=== PATIENT | female | born 1955 | race Hispanic/Latino ===

== ENCOUNTER 2018-11-25 05:39 | Emergency (ER) | payer SELFPAY ==
[2018-11-25 06:30] LABS: BILIRUBIN,URINE Negative (NEGATIVE); COLOR,URINE Yellow (YELLOW); GLUCOSE, URINE (UA) Negative (NEGATIVE); KETONES,URINE Negative (NEGATIVE); LEUKOCYTE ESTERASE ,URINE Small (NEGATIVE); NITRATE,URINE Negative (NEGATIVE); OCCULT BLOOD,URINE Negative (NEGATIVE); PROTEIN,URINE Negative (NEGATIVE); UROBILINOGEN,URINE 0.2 mg/dL (0.2-1.0)
[2018-11-25] MEDS ORDERED: ORPHENADRINE CITRATE 30 MG/ML ML ONE (06:32)
[2018-11-25] MEDS ORDERED: SODIUM CHLORIDE 0.9% 1000ML 2,000 ML IV ONE (06:32)
[2018-11-25] MEDS ORDERED: KETOROLAC TROMETHAMINE 30MG/ML ONE (06:32)
[2018-11-25 06:46] LABS: BASOPHILS % (AUTO) 0.7 % (0.0-5.0); HEMATOCRIT 46.3 % (36-48); LYMPHOCYTES % (AUTO) 35.7 % (21.0-51.0); MEAN CORPUSCULAR HEMOGLOBIN 31.2 pg (27.0-33.0); MEAN CORPUSCULAR HGB CONC 34.8 g/dL (32.0-36.0); MEAN CORPUSCULAR VOLUME 89.6 fL (79-99); MONOCYTES % (AUTO) 7.7 % (3.0-13.0); NEUTROPHILS % (AUTO) 54.9 % (40.0-77.0); NUCLEATED RED BLOOD CELLS 0.1 % (0.0-0.19); PLATELET COUNT (AUTO) 248 K/uL (130-400); RED BLOOD CELL COUNT(AUTO) 5.16 MIL/uL (4.00-5.50); RED CELL DISTRIBUTION WIDTH 14.4 % (11.0-15.5); WHITE BLOOD COUNT (AUTO) 6.5 K/uL (4.8-10.8)
[2018-11-25 06:56] LABS: CREATININE 0.7 mg/dL (0.5-1.5); POTASSIUM 3.7 mmol/L (3.5-5.1)
[2018-11-25 07:39] LABS: APPEARANCE,URINE CLEAR (CLEAR); BACTERIA,URINE Rare /HPF (None Seen); RBC,URINE None Seen /HPF (0-1)
[2018-11-25 07:40] LABS: SQUAMOUS EPITHELIAL CELL,UR 0-2 /HPF (0-2); WBC,URINE 0-1 /HPF (0-1)
== END 2018-11-25 08:02 | disposition home or self-care (01) ==
LOC: EDH 05:39
DX: M62.838 Other muscle spasm (principal); R51 Headache; I10 Essential (primary) hypertension
CPT/HCPCS: 36415; 80048; 81001; 85025; 96374; 96375; 99284; J1885; J2360; J7030

== ENCOUNTER 2019-04-04 19:19 | Emergency (ER) | payer OTHER ==
[2019-04-04 20:06] LABS: APPEARANCE,URINE Cloudy (CLEAR); BILIRUBIN,URINE Negative (NEGATIVE); COLOR,URINE Yellow (YELLOW); GLUCOSE, URINE (UA) Negative (NEGATIVE); KETONES,URINE Negative (NEGATIVE); LEUKOCYTE ESTERASE ,URINE Moderate (NEGATIVE); NITRATE,URINE Negative (NEGATIVE); OCCULT BLOOD,URINE Nonhemolyzed Trace (NEGATIVE); PROTEIN,URINE Negative (NEGATIVE); UROBILINOGEN,URINE 0.2 mg/dL (0.2-1.0)
[2019-04-04 20:16] LABS: BASOPHILS % (AUTO) 0.3 % (0.0-5.0); EOSINOPHILS % (AUTO) 1.4 % (0.0-8.0); HEMATOCRIT 43.1 % (36-48); LYMPHOCYTES % (AUTO) 47.9 % (21.0-51.0); MEAN CORPUSCULAR VOLUME 86.2 fL (79-99); MONOCYTES % (AUTO) 7.6 % (3.0-13.0); NEUTROPHILS % (AUTO) 42.5 % (40.0-77.0); PLATELET COUNT (AUTO) 275 K/uL (130-400); RED CELL DISTRIBUTION WIDTH 13.2 % (11.0-15.5); WHITE BLOOD COUNT (AUTO) 7.7 K/uL (4.8-10.8)
[2019-04-04 20:17] LABS: BACTERIA,URINE Rare /HPF (None Seen); RBC,URINE 0-1 /HPF (0-1)
[2019-04-04 20:18] LABS: AMORPHOUS SEDIMENT,UR Moderate /LPF (None Seen); MUCUS,URINE Few LPF (None Seen); SQUAMOUS EPITHELIAL CELL,UR Few /HPF (0-2)
[2019-04-04 20:20] LABS: URIC ACID CRYSTALS,URINE Rare /LPF (None Seen)
[2019-04-04] MEDS ORDERED: SODIUM CHLORIDE 0.9% 1000ML 1,000 ML IV ONE (20:28)
[2019-04-04] MEDS ORDERED: KETOROLAC TROMETHAMINE 30MG/ML ONE (20:28)
[2019-04-04 20:34] LABS: CREATININE 0.7 mg/dL (0.5-1.5); POTASSIUM 3.8 mmol/L (3.5-5.1)
[2019-04-04 20:38] LABS: ALBUMIN 3.3 g/dL (3.5-5.0); BILIRUBIN,TOTAL 0.4 mg/dL (0.2-1.0); TOTAL PROTEIN, SERUM 7.8 g/dL (6.0-8.3)
[2019-04-04] MEDS ORDERED: IOHEXOL-350 75 ML VIAL IV ONE (20:41)
== END 2019-04-04 21:52 | disposition home or self-care (01) ==
LOC: EDH 19:19
DX: N30.00 Acute cystitis without hematuria (principal); I10 Essential (primary) hypertension; M19.90 Unspecified osteoarthritis, unspecified site
CPT/HCPCS: 36415; 74177; 80053; 81001; 82948; 85025; 87040 ×2; 96374; 99285; J1885; J7030; Q9967

== ENCOUNTER 2020-10-08 20:23 | Emergency (ER) | payer OTHER ==
[~2020-10-08] VITALS: Ht 160 cm; Wt 54.4 kg
[2020-10-08 20:26] VITALS: BP 142/79
[2020-10-08 20:40] VITALS: BP 133/90
[2020-10-08] MEDS ORDERED: ALBUHFA IH (21:37)
[2020-10-08] MEDS ORDERED: FLUT1DIS IH (21:37)
== END 2020-10-08 22:11 | disposition home or self-care (01) ==
LOC: EDH 20:23
DX: U07.1 COVID-19 (principal); B34.9 Viral infection, unspecified; E66.9 Obesity, unspecified; I10 Essential (primary) hypertension; Z79.51 Long term (current) use of inhaled steroids; Z79.899 Other long term (current) drug therapy
CPT/HCPCS: 71045

== ENCOUNTER 2020-12-21 13:32 | Emergency (ER) | payer OTHER, SELFPAY ==
[~2020-12-21] VITALS: Ht 160 cm; Wt 99.8 kg
[~2020-12-21 13:32] MED LIST: ALBUHFA IH; FLUT1DIS IH
[2020-12-21 14:18] LABS: BASOPHILS % (AUTO) 0.4 % (0.0-5.0); EOSINOPHILS % (AUTO) 1.1 % (0.0-8.0); HEMATOCRIT 43.6 % (36-48); LYMPHOCYTES % (AUTO) 27.4 % (21.0-51.0); MEAN CORPUSCULAR HEMOGLOBIN 30.1 pg (27.0-33.0); MEAN CORPUSCULAR HGB CONC 34.6 g/dL (32.0-36.0); MEAN CORPUSCULAR VOLUME 86.9 fL (79-99); MONOCYTES % (AUTO) 7.3 % (3.0-13.0); NEUTROPHILS % (AUTO) 63.4 % (40.0-77.0); PLATELET COUNT (AUTO) 281 K/uL (130-400); RED BLOOD CELL COUNT(AUTO) 5.02 MIL/uL (4.00-5.50); RED CELL DISTRIBUTION WIDTH 13.1 % (11.0-15.5)
[2020-12-21 14:28] LABS: CREATININE 0.8 mg/dL (0.5-1.5); POTASSIUM 4.2 mmol/L (3.5-5.1)
[2020-12-21 14:32] LABS: ALBUMIN 3.8 g/dL (3.5-5.0); BILIRUBIN,TOTAL 1.2 mg/dL (0.2-1.0)
[2020-12-21 14:37] LABS: APPEARANCE,URINE Cloudy (CLEAR); BILIRUBIN,URINE Negative (NEGATIVE); COLOR,URINE Yellow (YELLOW); GLUCOSE, URINE (UA) Negative (NEGATIVE); KETONES,URINE Negative (NEGATIVE); LEUKOCYTE ESTERASE ,URINE Moderate (NEGATIVE); NITRATE,URINE Negative (NEGATIVE); OCCULT BLOOD,URINE Small (NEGATIVE); PH,URINE 5.5 (5.0-8.0); PROTEIN,URINE Trace mg/dL (NEGATIVE); UROBILINOGEN,URINE 0.2 mg/dL (0.2-1.0)
[2020-12-21 14:51] LABS: BACTERIA,URINE Few /HPF (None Seen); MUCUS,URINE Few LPF (None Seen); RBC,URINE 0-1 /HPF (0-1); SQUAMOUS EPITHELIAL CELL,UR Few /HPF (0-2)
[2020-12-21] MEDS ORDERED: CEFTRIAXONE 1G VIAL ONE (17:16)
[2020-12-21] MEDS ORDERED: KETOROLAC 30MG VIAL (30MG/ML) ONE (17:16)
[2020-12-21] MEDS ORDERED: 0.9%NACL 1000ML 1,000 ML IV ONE ×2 (17:17→17:30)
[2020-12-21] MEDS ORDERED: 0.9%NACL 50ML 50 ML IV ONE (17:17)
[2020-12-21] MEDS ORDERED: KETOROLAC 30MG VIAL (30MG/ML) IV ONE (17:30)
[2020-12-21] MEDS ORDERED: CEFTRIAXONE 1G VIAL IVP ONE (17:30)
[2020-12-21 18:54] VITALS: BP 116/65
[2020-12-21] MEDS ORDERED: ONDA4TAB10 PO (19:21)
[2020-12-21] MEDS ORDERED: CETI10TA57 PO (19:21)
[2020-12-21] MEDS ORDERED: IBUP-2070 PO (19:21)
[2020-12-21] MEDS ORDERED: CIPR-278 PO (19:21)
== END 2020-12-21 19:50 | disposition home or self-care (01) ==
LOC: EDH 13:32
DX: N12 Tubulo-interstitial nephritis, not specified as acute or chronic (principal); R55 Syncope and collapse; R09.81 Nasal congestion; E66.9 Obesity, unspecified; I10 Essential (primary) hypertension; Z68.39 Body mass index [BMI] 39.0-39.9, adult; Z79.1 Long term (current) use of non-steroidal anti-inflammatories (NSAID); Z79.51 Long term (current) use of inhaled steroids; Z79.899 Other long term (current) drug therapy
CPT/HCPCS: 36415; 74176; 80053; 81001; 82150; 82550; 83605; 83690; 84484; 85025; 87040 ×2; 87088; 93005; 96361; 96374; 96375; 99285; J0696; J1885; J7030

== ENCOUNTER 2022-08-01 13:18 | Emergency (ER) | payer OTHER ==
[~2022-08-01] VITALS: Ht 157.5 cm; Wt 95.3 kg
[~2022-08-01 13:18] MED LIST changes: +CETI10TA57 PO; +CIPR-278 PO; +IBUP-2070 PO; +ONDA4TAB10 PO
[2022-08-01 13:42] LABS: BASOPHILS % (AUTO) 0.5 % (0.0-5.0); EOSINOPHILS % (AUTO) 1.7 % (0.0-8.0); HEMATOCRIT 44.3 % (36-48); LYMPHOCYTES % (AUTO) 42.6 % (21.0-51.0); MEAN CORPUSCULAR HEMOGLOBIN 29.6 pg (27.0-33.0); MEAN CORPUSCULAR HGB CONC 34.5 g/dL (32.0-36.0); MEAN CORPUSCULAR VOLUME 85.7 fL (79-99); MONOCYTES % (AUTO) 6.7 % (3.0-13.0); NEUTROPHILS % (AUTO) 48.2 % (40.0-77.0); PLATELET COUNT (AUTO) 272 K/uL (130-400); RED BLOOD CELL COUNT(AUTO) 5.17 MIL/uL (4.00-5.50); RED CELL DISTRIBUTION WIDTH 13.7 % (11.0-15.5); WHITE BLOOD COUNT (AUTO) 7.6 K/uL (4.8-10.8)
[2022-08-01 13:53] LABS: CREATININE 0.8 mg/dL (0.5-1.5)
[2022-08-01 13:57] LABS: ALBUMIN 3.8 g/dL (3.5-5.0); INR 0.97 (0.85-1.15); PROTHROMBIN TIME 10.6 SEC (9.6-11.6); TOTAL PROTEIN, SERUM 7.8 g/dL (6.0-8.3)
[2022-08-01 13:59] LABS: PARTIAL THROMBOPLASTIN TIME 26.7 SEC (26.3-35.5)
[2022-08-01 16:02] VITALS: BP 145/87
== END 2022-08-01 16:16 | disposition home or self-care (01) ==
LOC: EDH 13:18
DX: R04.0 Epistaxis (principal); Z91.148 Patient's other noncompliance with medication regimen for other reason; I10 Essential (primary) hypertension; E78.00 Pure hypercholesterolemia, unspecified; K29.70 Gastritis, unspecified, without bleeding; Z79.899 Other long term (current) drug therapy
CPT/HCPCS: 36415; 80053; 85025; 85610; 85730

== ENCOUNTER 2023-08-28 15:54 | Emergency (ER) | payer BC, OTHER ==
[~2023-08-28] VITALS: Ht 170.2 cm; Wt 105.2 kg
[~2023-08-28 15:54] MED LIST changes: +ONDA-243 PO; -ONDA4TAB10 PO
[2023-08-28 16:14] LABS: ADD UA MICROSCOPIC YES; APPEARANCE,URINE CLEAR (CLEAR); BILIRUBIN,URINE NEGATIVE (NEGATIVE); COLOR,URINE LIGHT-YELLOW (YELLOW); GLUCOSE, URINE (UA) NEGATIVE (NEGATIVE); KETONES,URINE NEGATIVE (NEGATIVE); LEUKOCYTE ESTERASE ,URINE 250 Leu/uL (NEGATIVE); NITRATE,URINE NEGATIVE (NEGATIVE); PROTEIN,URINE NEGATIVE (NEGATIVE); UROBILINOGEN,URINE 0.2 mg/dL (0.2-1.0)
[2023-08-28 16:16] LABS: MUCUS,URINE RARE LPF (None Seen); RBC,URINE 0-1 /HPF (0-1); SQUAMOUS EPITHELIAL CELL,UR RARE /HPF (0-2); WBC CLUMP RARE /HPF (0-1)
[2023-08-28 16:17] LABS: BASOPHILS # (AUTO) 0.06 K/uL (0.00-0.20); BASOPHILS % (AUTO) 0.8 % (0.0-5.0); EOSINOPHILS # (AUTO) 0.18 K/uL (0.00-0.70); EOSINOPHILS % (AUTO) 2.3 % (0.0-8.0); HEMATOCRIT 45.6 % (36-48); IMMATURE GRANULOCYTE ABSOLUTE 0.02 K/uL (0-1); LYMPHOCYTES # (AUTO) 3.8 K/uL (1.0-4.8); LYMPHOCYTES % (AUTO) 47.8 % (21.0-51.0); MEAN CORPUSCULAR HEMOGLOBIN 31.2 pg (27.0-33.0); MEAN CORPUSCULAR HGB CONC 35.5 g/dL (32.0-36.0); MEAN CORPUSCULAR VOLUME 87.7 fL (79-99); MONOCYTES # (AUTO) 0.5 K/uL (0.1-1.0); MONOCYTES % (AUTO) 6.3 % (3.0-13.0); NEUTROPHILS # (AUTO) 3.3 K/uL (1.8-7.7); NEUTROPHILS % (AUTO) 42.5 % (40.0-77.0); PLATELET COUNT (AUTO) 261 K/uL (130-400); RED CELL DISTRIBUTION WIDTH 13.2 % (11.0-15.5); WHITE BLOOD COUNT (AUTO) 7.8 K/uL (4.8-10.8)
[2023-08-28 16:35] LABS: CREATININE 0.8 mg/dL (0.5-1.0); POTASSIUM 4.2 mmol/L (3.5-5.1)
[2023-08-28 16:42] LABS: ALBUMIN 3.8 g/dL (3.5-5.0); BILIRUBIN,DIRECT 0.1 mg/dL (0.0-0.3); BILIRUBIN,TOTAL 0.9 mg/dL (0.2-1.0); TOTAL PROTEIN, SERUM 7.5 g/dL (6.0-8.3)
[2023-08-28] MEDS: 0.9% NACL 500ML IV.SOLN 500 ML IV ONE (16:46)
[2023-08-28] MEDS: DIAZEPAM 5 MG/ML 2 ML SYG IVP ONE (16:46)
[2023-08-28 17:12] VITALS: BP 153/86; PULSE 74; RESP 19; O2SAT 96
[2023-08-28] MEDS: CEFTRIAXONE 1G VIAL IVPB ONE (17:59)
[2023-08-28] MEDS ORDERED: CIPR-278 PO (18:00)
== END 2023-08-28 18:20 | disposition home or self-care (01) ==
LOC: EDH 15:54
DX: N12 Tubulo-interstitial nephritis, not specified as acute or chronic (principal); I10 Essential (primary) hypertension; E78.00 Pure hypercholesterolemia, unspecified; K21.9 Gastro-esophageal reflux disease without esophagitis; Z90.49 Acquired absence of other specified parts of digestive tract; Z79.899 Other long term (current) drug therapy; Z98.890 Other specified postprocedural states
CPT/HCPCS: 99284; 74176; 96374; 96375; 80076; 84484; 80048; 83690; 85025; 87086; 81001; 36415; 93005; J7040; J3360; J0696

== ENCOUNTER 2023-09-15 16:18 | Emergency (ER) | payer BC ==
[~2023-09-15] VITALS: Ht 162.6 cm; Wt 104.3 kg
[2023-09-15] MEDS ORDERED: BISACODYL 10 MG SUPP.RECT RC ONE (17:00)
[2023-09-15] MEDS ORDERED: GOLY4L PO (17:45)
[2023-09-15 18:12] VITALS: BP 130/81; PULSE 76; RESP 18; O2SAT 99
[2023-09-15] MEDS: LACTULOSE 20 GM/30 ML UDCUP PO ONE (18:15)
== END 2023-09-15 18:40 | disposition home or self-care (01) ==
LOC: EDH 16:18
DX: K59.09 Other constipation (principal); R14.1 Gas pain; E78.00 Pure hypercholesterolemia, unspecified; I10 Essential (primary) hypertension; K21.9 Gastro-esophageal reflux disease without esophagitis; Z79.51 Long term (current) use of inhaled steroids; Z79.899 Other long term (current) drug therapy; Z90.49 Acquired absence of other specified parts of digestive tract; Z98.890 Other specified postprocedural states
CPT/HCPCS: 74018